=== PATIENT | male | born 1950 | race Caucasian/White ===

== ENCOUNTER 2024-05-22 10:28 | Inpatient (IN) | payer MEDICARE, SELFPAY ==
[2024-05-22] VITALS (20 sets, daily range): BP systolic 147–169; BP diastolic 73–89; PULSE 66–86; RESP 16–28; TEMP 36.8–37.3; O2SAT 93–98; BMI 22.8; BMI 23.5
--- OUTSIDE RECORDS SUMMARY | 2024-05-22 10:31 | XMS_ITS | Clinical Summary ---
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 0 07/20/2010 Active famotidine (PEPCID) 20 mg tabletIndication s:Routine medical exam Take 20 mg by mouth once daily. 0 12/07/2020 Active lisinopriL (PRINIVIL; ZESTRIL) 20 mg tabletIndication s:HTN (hypertension) Take 1 Tablet (20 mg) by mouth once daily. 90 Tablet 3 05/23/2023 Active Active Problems Problem Noted Date Diagnosed Date GERD (gastroesophageal reflux disease) 4 Rupture of right biceps tendon 03/02/2022 Overview (03/02/2022): 2019 Colon polyp, due 202501/12/2021 Overview (01/15/2021): Due 2025 3 mm tubular adenoma in the cecum 3 mm hyperplastic polyp in the sigmoid colon Paresthesia of right upper extremity 10/09/2019 HTN (hypertension) 02/07/2018 Resolved Problems Problem Noted Date Diagnosed Date Resolved Date Routine health maintenance 07/20/2010 0 09/02/2019 Overview (07/20/2010): Px: 03/2009 Cholesterol: 03/2009 216 LDL: 03/2009 137 Colonoscopy: 12/22/2004 polyp Encounters Date Type Department Care Team Description 03/21/2024 1:45 PM [employer] [facility] [address] [address] Katrina Jarrell MD Derm Problem 03/20/2024 Travel from Last 3 Months Immunizations Name Administration Dates Next Due COVID-19 vaccine (Moderna 10 0mcg/0.5mL) PF, MDV 06/29/2020,05/30/2020 Influenza A (H1N1), Inactivated 04/13/2009 Influenza A (H1N1), Inactiva lefty (Age >=3 Years) 04/13/2009 Influenza RIV4 (Age 18+ Years) PRESERV FREE 12/17 Influenza, High-dose Inactivated 02/22/2019 Influenza, High-dose Quadriv alent Inactivated 02/18/2022,02/08/2021 Influenza, IIV3 (Age >=3 years) 02/11/2013,02/02,03/17/2008 Influenza, Inactivated IIV3 (Age 65+ Years) Preserv Free 02/07/2018,03/22/2017 Pneumococcal Poly,23-Valent (Pneumovax) 01/14/20 20 Pneumococcal conj 13-Valent (Prevnar 13) 019 Td (Age >=7 Years) 02/07/2018 Td, Preservative Free (age >= 7 Years) 8 Tdap 03/17/2008 Zoster (Shingrix-RZV, recombinant) 09/13/2018, Family History Medical History Relation Name Comments Diabetes Father Heart Disease Father Hypertension Mother Other Sister uterine cancer Relation Name Status Comments Father Mother Sister Social History Tobacco Use Types Packs/Day Years Used Date Smoking Tobacco: Never Smokeless Tobacco: Never Alcohol Use Standard Drinks/Week Comments Yes 0 (1 standard drink = 0.6 oz pur e alcohol) 5 drinks per week PHQ-2 Answer Date Recorded PHQ-2 TOTAL SCORE 0 05/22/2023 Social Connections Answer Date Recorded Do you often feel lonely or isolated from those around you? 0 05/22/2023 Financial Resource Strain Answer Date R ecorded Difficulty of Paying Living Expenses 3 05/22/2023 Difficulty of Paying Living Expenses Not on file 05/22/2023 Food Insecurity Answer Date Recorded Do you worry your food will run out before you are able to buy more? 1 05/22/2023 Transportation Needs Answer Date Record ed Does lack of transportation keep you from medica l appointments? 1 05/22/2023 Does lack of transportation keep you from work, meetings or getting things that you need? 1 05/22/2023 Housing Stability Answer Date Recorded What is your housing situation today? 1 05/22/2023 Utilities Answer Date Recorded Do you have trouble paying f or utilities (for example, heat, electricity, water, phone)? 1 05/22/2023 Sex and Gender Information Value Date Recorded Sex Assigned at Not on file Legal Sex Male 7:54 AM [employer] Gender Identity Not on file Sexual Orientation Not on file Obstetrics History Last Filed Vital Signs Vital Sign Reading Time Taken Comments Blood Pressure 132/68 06/13/2023 10:43 AM [employer] Pulse 52 06/13/2023 10:43 AM [employer] Temperature 36.3 C (97.3 F) 01/12/2021 7:12 AM CDT Respiratory Rate 18 01/12/2021 9:26 AM CDT Oxygen Saturation 98% 01/12/2021 9:26 AM CDT Inhaled Oxygen Concentration - - Weight 70.8 kg (156 lb 1.6 oz) 06/13/2023 10:43 AM [employer] Height 170.2 cm (5' 7) 05/22/2023 10:47 AM [employer] Body Mass Index 24.45 05/22/2023 10:47 AM [employer] Plan of Treatment Health Maintenance Due Date Last Done Comments COVID-19 vaccine series ( season) 2023 02/18/2022, 03/15/2021, 06/29/2020, Additional history exists Influenza for age 65+ 12/17/2023 02/18/2022 , 02/08/2021, 01/14/2020, Additional history exists BMI (ht and wt on same day) for age 18+ 05/22/2024 05/22/2023, 03/02/2022, 12/07/2020, Additional history exists Medicare Wellness for age 65+ 05/22/2024, 03/02/2022, 12/07/2020, Additional history exists Depression screening for age 12+ 05/24/2024 05/24/2023, 05/23/2023, 05/22/2023, Additional history exists Colonoscopy through age 75 01/12/202601/12, 09/10/2014, 09/16/2009 RSV vaccine for adults or (1 - 1-dose 75+ series) 01/28/2027 Tetanus booster 02/08/2028 02/07/2018, 01/16, 03/17/2008 Lipids for age 45-75 05/22/2028 05/22/2023, 03/02/2022, 12/07/2020, Additional history exists Tdap Completed 03/17/2008 Zoster (shingles) series for age 50+ Completed 09/13/2018, 06/14/2018 Pneumococcal series for age 50+ Completed , 06/14/2018 Hepatitis C screening for ag e 18-79 Completed 03/02/2022 Procedures Procedure Name Priority Date/Time Associated Diagnosis Comments LIPID PANEL W REFLEX MEASURED LDL Routine 05/22/2023 11:30 AM [employer] Lipid screening ANTI HCV Routine 03/02/2022 1:21 PM [employer] Encounter for hepatitis C screening test for low risk patient COLONOSCOPY 01/12/2021 8:08 AM CDT from Last 3 Months or Most Recently Relevant to Health Maintenance Results * (ABNORMAL) LIPID PANEL W REFLEX MEASURED LDL (05/22/2023 11:30 AM [employer]) CHOLESTEROL,TOTAL 203(H) 100 - 199 mg/dL 05/23/2023 1:26 AM [employer] [facility] Comment: Cholesterol, Total Reference Ranges Desirable <200 mg/dL Borderline 200-239 mg/dL High >=240 mg/dL TRIGLYCERIDES 92 <150 mg/dL 05/23/2023 1:26 AM [employer] [facility] HDL CHOLESTEROL 60 >40 mg/dL 1:26 AM [employer] [facility] NON-HDL CHOLESTEROL 143 <145 mg/dl 05/23/2023 1:26 AM [employer] [facility] CHOL/HDL RATIO 3.38 <4.50 05/23/2023 1:26 AM [employer] [facility] LDL CHOLESTEROL 125 <=130 mg/dL 05/23/2023 1:26 AM [employer] [facility] VLDL CHOLESTEROL 18 <=30 mg/dL 05/23/2023 1:26 AM [employer] [facility] PROVIDER ORDERED STATUS RANDOM 05/23/2023 1:26 AM [employer] [facility] Blood BLOOD SPECIMEN / Unknown Venipuncture / Unknown 05/22/2023 11:30 AM [employer] 05/22/2023 11:30 AM [employer] Antonio Virgen MD CHEMISTRY Final R esult [facility] [address] [place] [address], [place] * ANTI HCV (03/02/2022 1:21 PM [employer]) HEPATITIS C ANTIBODY Non-React elvin Non-React elvin 03/04/2022 3:50 AM [employer] [facility] Comment:Antibodies to HCV no t detected; does not exclude the possibility of exposure to HCV. Blood BLOOD SPECIMEN / Unknown Venipuncture / Unknown 03/02/2022 1:21 PM [employer] 03/02/2022 1:24 PM [employer] Antonio Virgen MD SEND OUTS Final R esult [facility] [address] [place] [address], [place] * COLONOSCOPY (01/12/2021 8:08 AM CDT) 01/12/2021 8:08 AM CDT Narrative Transcriptions Shun Galvan MD - 01/12/2021 9:05 AM CDT Endoscopy Patient Name: Drew Hernandez Procedure Date: 01/12/2021 Gender: Male Date of : 1950 Admit Type: Ambulatory Procedure: Colonoscopy Proceduralist: Shun Galvan MD Referring MD: Antonio Virgen Indications/Pre-Op Diagnosis: Personal history of colonic polyps Medications: Monitored Anesthesia Care Procedure Description: The patient had risks, benefits and alternatives explained to andgave informed consent. The patient had a stable cardiopulmonary status and judged an adequate candidate for conscious sedation. The endoscope was passed through the anus and advanced to the cecum, identified by appendiceal orifice and ileocecal valve. The patient tolerated the procedure well. The quality of the bowel preparationwas good. The ileocecal valve, appendiceal orifice, and rectum were photographed. The colonoscopy was technically difficult and complexdue to a tortuous colon. Successful completion of the procedure was aidedby abdominal pressure and multiple position changes Complications: No immediate complications. Estimated Blood Loss & Specimen: Estimated blood loss was minimal. Specimen collected: Yes and sent to Laboratory Findings: The perianal and digital rectal examinations were normal. A 3 mm polyp was found in the cecum. The polyp was sessile. The polyp was removed with a hot biopsy forceps. Resection and retrieval were complete. A 3 mm polyp was found in the sigmoid colon. The polyp was sessile.The polyp was removed with a hot biopsy forceps. Resection and retrieval were complete. The exam was otherwise without abnormality. Impressions/Post-Op Diagnosis: - One 3 mm polyp in the cecum, removed with a hot biopsy forceps. Resected and retrieved. - One 3 mm polyp in the sigmoid colon, removed with a hot biopsy forceps. Resected and retrieved. - The examination was otherwise normal. Recommendation: - Follow up colonoscopy recommendations will depend on the pathologyof the polyps. - A letter will be sent to the patient with pathology results andfuture screening colonoscopy recommendations. Shun Galvan MD 01/12/2021 9:05:33 AM This report has been signed electronically. 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
--- NOTE | 2024-05-22 11:08 | ED.NAVMDI ---
HPI - Nausea/Vomiting/Diarrhea General Time Seen by Provider: 11:10 Date Seen: 05/22/24 Chief complaint: Nausea/Vomiting Stated complaint: Vomiting/cough - RSV&Pneu + Time Seen by Provider: 05/22/24 11:05 Source: patient, RN notes reviewed and old records reviewed Mode of arrival: ambulatory Limitations: no limitations History of Present Illness HPI Narrative: This 74-year-old male is coming in with ongoing nausea and vomiting in the setting of RSV and probable pneumonia diagnosed in clinic yesterday. He went to urgent care yesterday, had a positive RSV swab with underlying cough and fever as well as vomiting. He was placed on Augmentin. He states he cannot take the antibiotic, continues to just have vomiting to the point of dry heaving now, cannot get anything in. He states he really has not ate in 3 days. His chest x-ray in urgent care red subtle airspace opacities in the right middle and lower lobes may be related to aspiration or infection. Patient had been on a cruise to the [facility]. He had a 12 day history of cough. He had been in Urgent Care week prior and was given prednisone and Tessalon Perles. He was concerned about ongoing sinus symptoms and nasal congestion. He had 2 episodes of vomiting yesterday. No abdominal pain, no diarrhea, unable to take the Augmentin he was prescribed for sinusitis and pneumonia. Related Data Home Medications ?Medication ?Instructions ?Recorded ?Confirmed famotidine 20 mg tablet 20 mg PO DAILY 05/14/24 05/22/24 lisinopril 20 mg tablet 20 mg PO DAILY 05/14/24 05/22/24 Previous Rx's ?Medication ?Instructions ?Recorded benzonatate 200 mg capsule 200 mg PO TID PRN cough #30 caps 05/14/24 albuterol sulfate 90 mcg/actuation 2 puff inhalation Q6H PRN 05/21/24 aerosol inhaler shortness of breath or wheezing #6.7 grams amoxicillin-potassium clavulanate 1 tab PO BID 10 days #20 tabs 05/21/24 1,000 mg-62.5 mg tablet,ext.rel 12hr (Augmentin XR) Allergies Allergy/AdvReac Type Severity Reaction Status Date / Time Sulfa (Sulfonamide Allergy Intermediate Unknown Verified 05/22/24 13:49 Antibiotics) Review of Systems Status of ROS: Reports: 6 or more systems reviewed and unremarkable except as noted in History and below [facility] Medical History (Updated 05/22/24 @ 15:35 by Holly Ott PA-C) GERD (gastroesophageal reflux disease) ?K21.9 - Gastro-esophageal reflux disease without esophagitis (ICD-10) Hypertension ?I10 - Essential (primary) hypertension (ICD-10) Social History What is your current living situation?: I presently have a place to live Problems where you live: no known problems Problems where you live details: none In the past 12 months, utilities in danger of being shut off: no In past 12 months, lack of transportation kept you from medical appts, meetings, work, or getting things needed for daily living: no In the past 12 mos, have been you worried that your food would run out before you had money to buy more?: never true In the past 12 mos, the food you bought just didn't last and you didn't have money to buy more?: never true Highest level of school completed/degree received: Bachelor's degree Smoking Status: Never smoker Do you use any of these nicotine containing products: None How often do you have a drink containing alcohol: 4 or more times a week How many standard drinks containing alcohol do you have on a typical day: 1 or 2 How often do you have six or more drinks on one occasion: Never AUDIT-C Alcohol total score: 4 Non-prescribed substance use: denies use Caffeine: Yes (2 cups coffee) How often does anyone, including family, friends and others, physically hurt you: never How often does anyone, including family, friends and others, insult or talk down to you: never How often does anyone, including family, friends and others, threaten you with harm: never How often does anyone, including family, friends and others, scream or curse at you: never service: No Exam Const: Vital Signs, click to edit/add: Vital Signs - 24 hr 05/22/24 10:38 05/22/24 10:39 05/22/24 10:41 Temperature 98.3 F Pulse Rate 85 83 Pulse Rate [Pulse Oximeter] 86 Respiratory Rate 16 Blood Pressure 147/89 H Blood Pressure [Ri ght Upper Arm] 147/89 H Pulse Oximetry 96 98 97 Oxygen Delivery Me thod Room Air 05/22/24 10:45 05/22/24 11:00 05/22/24 11:15 Temperature Pulse Rate 80 72 73 Pulse Rate [Pulse Oximeter] Respiratory Rate Blood Pressure Blood Pressure [Ri ght Upper Arm] Pulse Oximetry 96 96 95 Oxygen Delivery Me thod 05/22/24 11:40 05/22/24 11:45 05/22/24 12:00 Temperature Pulse Rate 79 72 66 Pulse Rate [Pulse Oximeter] Respiratory Rate Blood Pressure Blood Pressure [Ri ght Upper Arm] Pulse Oximetry 95 93 94 Oxygen Delivery Me thod 05/22/24 12:15 05/22/24 12:30 05/22/24 12:45 Temperature Pulse Rate 78 85 73 Pulse Rate [Pulse Oximeter] Respiratory Rate 18 Blood Pressure Blood Pressure [Ri ght Upper Arm] Pulse Oximetry 96 96 97 Oxygen Delivery Me thod 05/22/24 13:00 Temperature Pulse Rate 77 Pulse Rate [Pulse Oximeter] Respiratory Rate Blood Pressure Blood Pressure [Ri ght Upper Arm] Pulse Oximetry 96 Oxygen Delivery Me thod 74-year-old male is alert, interactive, no apparent distress, sitting upright in the bed in exam room 2. It will to speak in complete sentences, no tachypnea, no stridor, no hoarseness. Pupils equal round reactive, sclera clear. Symmetrical facial function. Skin is tanned, note no rash. Lungs actually are clear, no wheezing or crackles heard. CV regular rate and rhythm, no murmur. Abdomen is soft, nontender, nondistended, no organomegaly, no masses. Has no lower extremity edema. Patient was ambulatory into the ED of his own accord. Documenting provider has reviewed patient's vital signs: yes Course Course ED Course: We will establish an IV, give this patient a L of IV fluids and 4 mg IV Zofran. Will get a full complement of blood work looking at CBC, chemistries, liver functions. Will include lipase and cardiac enzymes as possible atypical presentation of his nausea of for other etiologies like cardiac disease, pancreatic issues. Abdomen is soft, do not think obstructive etiology needs to be a consideration at this time but will consider doing advanced imaging pending any concerning findings on his blood work. Need to consider treating his pneumonia with IV medicines if he cannot take in orals. It is possible that he has RSV pneumonia but at this point would agree with treating with antibiotics. He is oxygenating well but still may require IV fluid support an IV antibiotics if he cannot take in orals. There is a chance for admission here to the hospital, patient does understand that. We will see how his ED course goes. Will recheck a chest x-ray just to ensure no significant worsening. Consultations Consultation #1: Up have called hospitalist service, they are not clear if they are admitting at this time or if they can admit, will contact us back shortly. 12:52 p.m.: Have spoken back with the hospitalist, reviewed case. They will accept. Will update patient that he will be coming into the hospital and review that his sodium is low. Time: 12:49 Vital Signs Vital signs: Initial Vital Signs Pulse Rate 85 05/22/24 10:38 Blood Pressure 147/89 H 05/22/24 10:38 Blood Pressure Mean 108 H 05/22/24 10:38 Pulse Oximetry 96 05/22/24 10:38 Vital Signs Pulse Rate 85 05/22/24 10:38 Blood Pressure 147/89 H 05/22/24 10:38 Pulse Oximetry 96 05/22/24 10:38 Temperature 98.7 F 05/22/24 13:53 Pulse Rate 85 05/22/24 13:53 Respiratory Rate 18 05/22/24 14:41 Blood Pressure 163/78 H 05/22/24 13:53 Pulse Oximetry 93 05/22/24 14:41 Oxygen Delivery Method Room Air 05/22/24 14:41 Medications Administered Medications: Generic Name Dose Route Start Last Admin Trade Name Freq PRN Reason Stop Dose Admin Sodium Chloride 1,000 mls @ 100 mls/hr 05/22/24 14:54 05/22/24 15:25 0.9 % Sodium Chloride 1000 Ml IV 05/23/24 00:53 100 mls/hr .Q10H DAYANA Administration Discontinued Medications Generic Name Dose Route Start Last Admin Trade Name Freq PRN Reason Stop Dose Admin Sodium Chloride 1,000 mls @ 500 mls/hr 05/22/24 11:17 05/22/24 12:33 0.9 % Sodium Chloride 1000 Ml IV 05/22/24 13:16 Infused .Q2H DAYANA Infusion Ceftriaxone Sodium 1 gm/ 100 mls @ 200 mls/hr 05/22/24 11:53 05/22/24 12:33 Sodium Chloride IVPB 05/22/24 11:54 Infused ONCE ONE Infusion Azithromycin 500 mg/ Sodium 255 mls @ 255 mls/hr 05/22/24 11:53 05/22/24 13:29 Chloride IVPB 05/22/24 11:54 Infused ONCE ONE Infusion Ondansetron HCl 4 mg 05/22/24 11:16 05/22/24 11:48 Ondansetron 2 Mg/Ml Inj IVP 05/22/24 11:17 4 mg ONCE ONE Administration MDM - Nausea/Vomiting/Diarrhea Lab Data Attestation: I reviewed the patient's lab results. Labs: Lab Results 05/22/24 Range/Units 11:30 WBC 15.44 H (4.50-11.00) K/uL RBC 4.01 L (4.30-5.90) m/uL Hgb 12.4 L (13.5-17.5) gm/dL Hct 34.9 L (37.0-53.0) % MCV 87 (80-100) fL MCH 31 (26-34) pg MCHC 36 (32-36) gm/dL RDW Coeff of Trisha 11.2 L (11.5-15.5) % Plt Count 296 (140-440) K/uL Neut % (Auto) 87.0 H (42.0-72.0) % Lymph % (Auto) 5.5 L (20-44) % [place] % (Auto) 6.5 (0.0-11.0) % Eos % (Auto) 0.2 (0.0-7.0) % Baso % (Auto) 0.1 (0.0-3.0) % Neut # (Auto) 13.40 H (1.7-7.0) K/uL Lymph # (Auto) 0.80 L (0.90-2.90) K/uL [place] # (Auto) 1.00 H (0.00-0.90) K/UL Eos # (Auto) 0.00 (0.00-0.50) K/uL Baso # (Auto) 0.00 (0.00-0.30) K/uL Abs Immat Gran (auto) 0.10 (0.00-0.30) K/uL Imm/Tot Granulo (auto) 0.7 % VBG pH 7.420 (7.32-7.43) VBG pCO2 37 L (40-50) mmHG VBG pO2 < 30.1 (25-47) mmHG VBG HCO3 25 (21-28) mmol/L Sodium 118 L* (135-149) mmol/L Potassium 4.9 (3.6-5.1) mmol/L Chloride 85 L (96-114) mmol/L Carbon Dioxide 22 (20-32) mmol/L Anion Gap 11 (7-15) mEq/L BUN 17 (7-30) mg/dL Creatinine 0.8 (0.5-1.5) mg/dL Estimated Creat Clear 64.26 Estimated GFR 94 ml/min Glucose 120 H (60-115) mg/dL Lactate 0.9 (0.5-1.9) mmol/L Calcium 8.7 (8.4-10.6) mg/dL Magnesium 2.0 (1.5-2.6) mg/dL Total Bilirubin 1.1 (0.1-1.5) mg/dL AST 64 H (12-35) U/L ALT 45 (4-50) U/L Alkaline Phosphatase 110 (40-150) U/L Troponin I < 0.01 L (0.01-0.04) ng/mL C-Reactive Protein 21.4 H (0.5-1.0) mg/dL Total Protein 7.0 (6.0-8.3) g/dL Albumin 4.0 (3.3-5.0) g/dL Lipase 72 (23-300) U/L Imaging Data Chest x-ray: Attestation: I have reviewed the pertinent imaging results. Radiologist's impression: Patient: LENNY PULIDO Facility:?[facility] Patient ID:?[id number] Site Patient ID:?[id number]. Site :?[id number] Study:?XRay-Chest Portable one view-05/22/2024 11:36:17 AM Ordering Physician:Víctor Bruce Final Report: INDICATION: : Cough chest radiograph on May 21, 2024 COMPARISON: Chest radiograph from May 21, 2024 TECHNIQUE: One view(s) of the chest FINDINGS/IMPRESSION: The cardiomediastinal silhouette and pulmonary vasculature are unremarkable. Faint airspace opacities in the right upper and mid lung zones and likely medial right lower lobe, concerning for multifocal pneumonia. There is no pleural effusion or pneumothorax. No displaced fractures. Dictated by Ambrocio Butt MD @ 05/22/2024 11:43:14 AM (Electronic Signature) ECG Data Attestation: I personally reviewed and interpreted this ECG as follows: (Normal sinus rhythm, 75 beats per minute. No evidence of ischemia or infarct.) ECG interpretation date: 05/22/24 ECG interpretation time: 11:43 Prior ECG tracings: not available for review Discharge Plan Discharge Clinical Impression: Acute nausea with nonbilious vomiting, Acute hyponatremia, Pneumonia, RSV (respiratory syncytial virus infection) Patient Disposition: Admitted As Observation
--- NOTE | 2024-05-22 11:16 | CRLHL7_ITS ---
For Patients: As a result of the Cures Act, medical imaging exams and procedure reports are released immediately into your electronic medical record. You may view this report before your referring provider. If you have questions, please contact your health care provider. INDICATION: : Cough chest radiograph on May 21, 2024 COMPARISON: Chest radiograph from May 21, 2024 TECHNIQUE: One view(s) of the chest FINDINGS/IMPRESSION: The cardiomediastinal silhouette and pulmonary vasculature are unremarkable. Faint airspace opacities in the right upper and mid lung zones and likely medial right lower lobe, concerning for multifocal pneumonia. There is no pleural effusion or pneumothorax. No displaced fractures. Dictated by Ambrocio Butt MD @ 05/22/2024 11:43:14 AM (Electronically Signed)
[2024-05-22 11:41] LABS: Lactate* 0.9 mmol/L (0.5-1.9)
[2024-05-22] MEDS: ONDANSETRON 2 MG/ML inj 4 MG IVP (11:48)
[2024-05-22] MEDS: 0.9 % SODIUM CHLORIDE 1000 ml 1,000 ML 500 ML IV (11:48)
[2024-05-22 11:53] LABS: Basophils Percent Auto 0.1 % (0.0-3.0); Eosinophils Percent Auto 0.2 % (0.0-7.0); HCO3 VBG 25 mmol/L (21-28); Hematocrit 34.9 % (37.0-53.0); Hemoglobin* 12.4 gm/dL (13.5-17.5); Immature Granulocytes Pct Auto 0.7 %; Lymphocytes Percent Auto 5.5 % (20-44); Mean Corpuscular HGB Conc 36 gm/dL (32-36); Mean Corpuscular Hemoglobin 31 pg (26-34); Mean Corpuscular Volume 87 fL (80-100); Monocytes Percent Auto 6.5 % (0.0-11.0); PCO2 VBG 37 mmHG (40-50); PO2 VBG < 30.1 mmHG (25-47); Platelet Count* 296 K/uL (140-440); RDW Coefficient of Variation % 11.2 % (11.5-15.5); Red Blood Count 4.01 m/uL (4.30-5.90); White Blood Count* 15.44 K/uL (4.50-11.00)
[2024-05-22 11:54] LABS: Slide Review Reflex No
[2024-05-22] MEDS: cefTRIAXone 1 GM in 0.9 % SODIUM CHLORIDE Mini-bag 100 ML IVPB (12:04)
[2024-05-22 12:07] LABS: Chloride* 85 mmol/L (96-114)
[2024-05-22 12:08] LABS: Potassium* 4.9 mmol/L (3.6-5.1)
[2024-05-22 12:09] LABS: Creatinine* 0.8 mg/dL (0.5-1.5); Est. Creatinine Clearance* 64.26; Estimated Glomerular Filt Rate 94 ml/min
[2024-05-22 12:10] LABS: Alkaline Phosphatase* 110 U/L (40-150); Aspartate Amino Transferase* 64 U/L (12-35); Bilirubin Total* 1.1 mg/dL (0.1-1.5); Blood Urea Nitrogen* 17 mg/dL (7-30); Carbon Dioxide* 22 mmol/L (20-32); Lipase* 72 U/L (23-300)
[2024-05-22 12:11] LABS: Alanine Aminotransferase* 45 U/L (4-50); Calcium* 8.7 mg/dL (8.4-10.6); Glucose* 120 mg/dL (60-115)
[2024-05-22 12:22] LABS: Anion Gap 11 mEq/L (7-15); Sodium* 118 mmol/L (135-149)
[2024-05-22 12:27] LABS: C Reactive Protein* 21.4 mg/dL (0.5-1.0)
[2024-05-22] MEDS: AZITHROMYCIN 500 MG in 0.9 % SODIUM CHLORIDE 250 ml 250 ML 255 MG IVPB (12:34)
[2024-05-22 12:42] LABS: Troponin I* < 0.01 ng/mL (0.01-0.04)
[2024-05-22 14:44] LABS: Albumin* 3.7 g/dL (3.3-5.0); Chloride* 89 mmol/L (96-114)
[2024-05-22 14:45] LABS: Potassium* 4.6 mmol/L (3.6-5.1)
[2024-05-22 14:47] LABS: Aspartate Amino Transferase* 57 U/L (12-35); Bilirubin Total* 0.9 mg/dL (0.1-1.5); Carbon Dioxide* 20 mmol/L (20-32); Creatinine* 0.7 mg/dL (0.5-1.5); Estimated Glomerular Filt Rate 98 ml/min; Total Protein* 6.5 g/dL (6.0-8.3)
[2024-05-22 14:48] LABS: Alanine Aminotransferase* 41 U/L (4-50); Alkaline Phosphatase* 102 U/L (40-150); Blood Urea Nitrogen* 15 mg/dL (7-30); Calcium* 8.1 mg/dL (8.4-10.6); Glucose* 107 mg/dL (60-115)
--- NOTE | 2024-05-22 14:48 | PM.IMHP1 ---
Hospitalist- H&P: HPI History of Present Illness Date Seen: 05/22/24 Chief complaint: Vomiting/cough - RSV&Pneu + Narrative: Drew Hernandez is a 74 year old male past medical history significant for hypertension, GERD is admitted the medical floor from the ED for further management acute hyponatremia, multifocal pneumonia, and RSV. Patient is seen with at bedside. Returned from a 2 week cruise to the [place] a couple of weeks ago. Reports coming down with chest congestion and what he thought was a head cold approximately 05/09/2024. Had been seen a couple of times in the outpatient setting and has completed a course of antibiotics and steroids without improvement. For the past 3 days now has had a worsening, dry cough. Began vomiting last night. Increased weakness. In the ED, was found to have a sodium of 118. Has not had much of an appetite for the past 3 days. Last bowel movement was yesterday, small otherwise normal. Denies diarrhea. Denies abdominal pain other than when coughing. Denies headache or dizziness. Had a fever of 100.3? yesterday. RSV positive 05/21/2024, COVID influenza negative. CXR concerning for multifocal pneumonia. No hypoxia. LFTs mostly unremarkable, lipase negative. Nonsmoker. Drinks 1 scotch and aida [place] drink nightly. PCP is, Dr. Virgen, [facility]. Review of Systems Narrative: REVIEW OF SYSTEMS: Complete review of systems performed and negative unless otherwise stated in HPI or below. [facility] Medical History GERD (gastroesophageal reflux disease) ?K21.9 - Gastro-esophageal reflux disease without esophagitis (ICD-10) Hypertension ?I10 - Essential (primary) hypertension (ICD-10) Social History What is your current living situation?: I presently have a place to live Problems where you live: no known problems Problems where you live details: none In the past 12 months, utilities in danger of being shut off: no In past 12 months, lack of transportation kept you from medical appts, meetings, work, or getting things needed for daily living: no In the past 12 mos, have been you worried that your food would run out before you had money to buy more?: never true In the past 12 mos, the food you bought just didn't last and you didn't have money to buy more?: never true Highest level of school completed/degree received: Bachelor's degree Smoking Status: Never smoker Do you use any of these nicotine containing products: None How often do you have a drink containing alcohol: 4 or more times a week How many standard drinks containing alcohol do you have on a typical day: 1 or 2 How often do you have six or more drinks on one occasion: Never AUDIT-C Alcohol total score: 4 Non-prescribed substance use: denies use Caffeine: Yes (2 cups coffee) How often does anyone, including family, friends and others, physically hurt you: never How often does anyone, including family, friends and others, insult or talk down to you: never How often does anyone, including family, friends and others, threaten you with harm: never How often does anyone, including family, friends and others, scream or curse at you: never service: No Meds Home Medications and Allergies Home Medications ?Medication ?Instructions ?Recorded ?Confirmed ?Type famotidine 20 mg tablet 20 mg PO DAILY 05/14/24 05/22/24 History lisinopril 20 mg tablet 20 mg PO DAILY 05/14/24 05/22/24 History Allergies Allergy/AdvReac Type Severity Reaction Status Date / Time Sulfa (Sulfonamide Allergy Intermediate Unknown Verified 05/22/24 13:49 Antibiotics) Exam Narrative: Exam Narrative: PHYSICAL EXAM General: Pleasant, conversant, NAD HEENT: Normocephalic, atraumatic, sclera white, EOMI, oral mucosa moist Cardiovascular: RRR, S1S2. No pitting edema Pulmonary: Moving air, coarse expirations, No dyspnea or tachypnea on room air Abdominal: Soft, nondistended, NTTP, no guarding Neurological: Alert, answering questions appropriately, cranial nerves intact, no focal findings Extremities: No gross joint deformity or swelling. AROMI. Neurovascularly intact Skin: Warm, dry. Const: Vital Signs, click to edit/add: Vital Signs - 24 hr 05/22/24 10:38 05/22/24 10:39 05/22/24 10:41 Temperature 98.3 F Pulse Rate 85 83 Pulse Rate [Pulse Oximeter] 86 Respiratory Rate 16 Blood Pressure 147/89 H Blood Pressure [Ri ght Arm] Blood Pressure [Ri ght Upper Arm] 147/89 H Pulse Oximetry 96 98 [facility] 05/22/24 10:45 05/22/24 11:00 05/22/24 11:15 Temperature Pulse Rate 80 72 73 Pulse Rate [Pulse Oximeter] Respiratory Rate Blood Pressure Blood Pressure [Ri ght Arm] Blood Pressure [Ri ght Upper Arm] Pulse Oximetry 96 96 95 [facility] 05/22/24 11:40 05/22/24 11:45 05/22/24 12:00 Temperature Pulse Rate 79 72 66 Pulse Rate [Pulse Oximeter] Respiratory Rate Blood Pressure Blood Pressure [Ri ght Arm] Blood Pressure [Ri ght Upper Arm] Pulse Oximetry 95 93 94 [facility] 05/22/24 12:15 05/22/24 12:30 05/22/24 12:45 Temperature Pulse Rate 78 85 73 Pulse Rate [Pulse Oximeter] Respiratory Rate 18 Blood Pressure Blood Pressure [Ri ght Arm] Blood Pressure [Ri ght Upper Arm] Pulse Oximetry 96 96 97 Oxygen Delivery [facility] 05/22/24 13:00 05/22/24 13:53 05/22/24 14:30 Temperature 98.7 F Pulse Rate 77 Pulse Rate [Pulse Oximeter] 85 Respiratory Rate 16 28 H Blood Pressure Blood Pressure [Ri ght Arm] 163/78 H Blood Pressure [Ri ght Upper Arm] Pulse Oximetry 96 97 97 Oxygen Delivery [facility] Room Air Room Air 05/22/24 14:41 Temperature Pulse Rate Pulse Rate [Pulse Oximeter] Respiratory Rate 18 Blood Pressure Blood Pressure [Ri ght Arm] Blood Pressure [Ri ght Upper Arm] Pulse Oximetry 93 Oxygen Delivery [facility] Room Air Hospitalist - H&P: Result Labs Labs: Short CBC 05/22/24 Range/Units 11:30 WBC 15.44 H (4.50-11.00) K/uL Hgb 12.4 L (13.5-17.5) gm/dL Hct 34.9 L (37.0-53.0) % Plt Count 296 (140-440) K/uL BMP 05/22/24 11:30 Sodium 118 L* Potassium 4.9 Chloride 85 L Carbon Dioxide 22 BUN 17 Creatinine 0.8 Glucose 120 H Calcium 8.7 Cardiac Enzymes 05/22/24 Range/Units 11:30 Troponin I < 0.01 L (0.01-0.04) ng/mL Liver Function 05/22/24 Range/Units 11:30 Total Bilirubin 1.1 (0.1-1.5) mg/dL AST 64 H (12-35) U/L ALT 45 (4-50) U/L Alkaline Phosphatase 110 (40-150) U/L Albumin 4.0 (3.3-5.0) g/dL ECG Attestation: I personally reviewed and interpreted this ECG as follows: ECG interpretation date: 05/22/24 Interpretation: NSR, ventricular rate 75, QTC 415 Imaging Chest x-ray: Attestation: I have reviewed the pertinent imaging results. Radiologist's impression: The cardiomediastinal silhouette and pulmonary vasculature are unremarkable. Faint airspace opacities in the right upper and mid lung zones and likely medial right lower lobe, concerning for multifocal pneumonia. There is no pleural effusion or pneumothorax. No displaced fractures. Assessment and Plan Assessment and plan (1) RSV (respiratory syncytial virus infection): Problem comment: -positive test 05/21/24, sxs congestion, fever 100.3 at home, dry cough -symptomatic cares Status: Acute (2) Pneumonia: Problem comment: -CXR shows faint airspace opacities in the right upper and mid lung zones and likely medial right lower lobe, concerning for multifocal pneumonia -leukocytosis, lactate 0.9, procalcitonin 0.39, CRP 21.4 -continue Ceftriaxone and azithromycin as initiated in ED -mucinex bid, tessalon perles prn, incentive spirometry, aerobika, albuterol nebs prn -consider CT imaging if new or worsening symptoms or no resolve Status: Acute (3) Acute hyponatremia: Problem comment: -likely in setting of viral illness, vomiting, decreased oral intake -sodium 118 in ED, improved to 120 following NS bolus -additional NS at 100ml x 1L -fluid restriction 1500ml, protein supplements, consider addition of sodium tabs tomorrow -hold lisinopril for now -serial labs Status: Acute (4) Acute nausea with nonbilious vomiting: Problem comment: -nausea with vomiting. No diarrhea, last BM yesterday. Consider norovirus test if develops abdominal pain, diarrhea -antiemetic prn Status: Acute (5) Hypertension: Problem comment: -holding lisinopril in setting of hyponatremia, monitor pressures Status: Acute (6) GERD (gastroesophageal reflux disease): Problem comment: -continue famotidine Status: Acute Total Time Spent Total Time Spent: Total time spent caring for the patient today was 75 minutes. This includes time spent for the visit reviewing the chart, time spent during the visit, time spent after the visit and documentation and planning in coordination of care.
[2024-05-22 14:53] LABS: Anion Gap 11 mEq/L (7-15); Sodium* 120 mmol/L (135-149)
[2024-05-22] MEDS: 0.9 % SODIUM CHLORIDE 1000 ml 1,000 ML 100 ML IV (15:25)
[2024-05-22 15:32] LABS: Procalcitonin* 0.39 ng/mL (<0.50)
[2024-05-22] MEDS: BENZONATATE 100 MG CAPSULE 200 MG PO (16:07)
[2024-05-22 18:49] LABS: Sodium* 119 mmol/L (135-149)
[2024-05-22] MEDS: 3 % SODIUM CHLORIDE 500 ml 50 ML 33.33 ML IV ×2 (19:36→23:41)
[2024-05-22] MEDS: SODIUM CHLORIDE 0.9 % (FLUSH) 10 ML SYRINGE 5 ML IVF (21:14)
[2024-05-22] MEDS: guaiFENesin 600 MG TAB.ER.12H 1200 MG PO (21:14)
[2024-05-22] MEDS: ENOXAPARIN 40 MG/0.4 ML INJ SUBCUT (21:14)
[2024-05-22 22:39] LABS: Sodium* 120 mmol/L (135-149)
--- NOTE | 2024-05-22 23:17 | PC.NURSE ---
End of Shift: Patient pleasant and cooperative. Temp max 99.0. Denies pain. O2 sats greater than 90% on room air. Tele showing NSR. Up to bathroom with SBA. Tolerating regular diet with no nausea.
[2024-05-23] VITALS (7 sets, daily range): BP systolic 136–159; BP diastolic 68–73; PULSE 65–74; RESP 18; TEMP 36.7–37.3; O2SAT 95–98
[2024-05-23] MEDS: CALCIUM CARBONATE 500 MG CHEW PO (01:20)
[2024-05-23 02:23] LABS: Sodium* 121 mmol/L (135-149)
[2024-05-23] MEDS: 3 % SODIUM CHLORIDE 500 ml 50 ML 33.33 ML IV ×3 (02:42→14:29)
[2024-05-23 04:42] LABS: Hematocrit 32.6 % (37.0-53.0); Hemoglobin* 11.5 gm/dL (13.5-17.5); Mean Corpuscular HGB Conc 35 gm/dL (32-36); Mean Corpuscular Hemoglobin 31 pg (26-34); Mean Corpuscular Volume 89 fL (80-100); Platelet Count* 281 K/uL (140-440); Red Blood Count 3.67 m/uL (4.30-5.90); White Blood Count* 13.98 K/uL (4.50-11.00)
[2024-05-23 04:45] LABS: Slide Review Reflex No
[2024-05-23 04:53] LABS: Chloride* 93 mmol/L (96-114)
[2024-05-23 04:54] LABS: Potassium* 4.5 mmol/L (3.6-5.1)
[2024-05-23 04:56] LABS: Creatinine* 0.8 mg/dL (0.5-1.5); Estimated Glomerular Filt Rate 94 ml/min
[2024-05-23 04:57] LABS: Anion Gap 8 mEq/L (7-15); Blood Urea Nitrogen* 14 mg/dL (7-30); Carbon Dioxide* 20 mmol/L (20-32); Glucose* 101 mg/dL (60-115)
[2024-05-23 04:58] LABS: Calcium* 8.3 mg/dL (8.4-10.6)
[2024-05-23 05:01] LABS: Sodium* 121 mmol/L (135-149)
[2024-05-23 05:17] LABS: C Reactive Protein* 19.8 mg/dL (0.5-1.0)
[2024-05-23 05:24] LABS: Magnesium* 2.1 mg/dL (1.5-2.6)
--- NOTE | 2024-05-23 07:01 | PC.NURSE ---
19-: Pleasant and cooperative. SBA. Calls appropriately. Compliant with 1500 Fluid Restriction. Na + 120 -> 121 -> 121, each lab draw done after 50mL 3% NS given. MD ordered Urine Na, need urine sample. LS diminished in Right lobe. Occasional cough.
[2024-05-23] MEDS: FAMOTIDINE 20 MG TABLET PO (09:10)
[2024-05-23] MEDS: guaiFENesin 600 MG TAB.ER.12H 1200 MG PO ×2 (09:10→20:15)
[2024-05-23] MEDS: cefTRIAXone 1 GM in 0.9 % SODIUM CHLORIDE Mini-bag 100 ML IVPB (09:11)
[2024-05-23] MEDS: SODIUM CHLORIDE 0.9 % (FLUSH) 10 ML SYRINGE 5 ML IVF ×2 (09:11→20:16)
[2024-05-23] MEDS: AZITHROMYCIN 500 MG in 0.9 % SODIUM CHLORIDE 250 ml 250 ML 255 MG IVPB (09:55)
--- NOTE | 2024-05-23 12:37 | REH.OT ---
OT: Order received, chart reviewed, patient had just been up independently as he was cleared by PT and returning to chair, completed toileting independently. Coughing frequently, O2 sats on RA 94%, HR . Initiated ed with pacing strategies with acute illness, however Patient c/o burning in eyes, not getting back up because of eyes, informed RN and OT provided compress to eyes, pt reclined in chair declining need for OT. He does not present with need for skilled inpatient OT currently. OT will follow up if additional concerns arise.
[2024-05-23 12:43] LABS: Sodium* 122 mmol/L (135-149)
[2024-05-23 12:44] LABS: Sodium Urine Random* 104
--- NOTE | 2024-05-23 15:26 | PC.NURSE ---
End of shift [id number]: AxOx4, cooperative, and pleasant. Indep in room after being seen with PT. Compliant with 1500 Fluid Restriction. Na + 122. 3% NS given running at 33.33 mL for a total of 50mLper MD order. Na recheck @ 6740. Urine sample collected. Active, frequent cough. No pain reported. Family at bedside. Call light within reach.
--- NOTE | 2024-05-23 15:39 | PM.IMPN1 ---
Progress Note: A&P Assessment and plan (1) RSV (respiratory syncytial virus infection): Problem details: -positive test 05/21/24, sxs congestion, fever 100.3 at home, dry cough -symptomatic cares Status: Acute (2) Pneumonia: Problem details: -CXR shows faint airspace opacities in the right upper and mid lung zones and likely medial right lower lobe, concerning for multifocal pneumonia -leukocytosis, lactate 0.9, procalcitonin 0.39, CRP 21.4 -continue Ceftriaxone and azithromycin as initiated in ED -mucinex bid, tessalon perles prn, incentive spirometry, aerobika, albuterol nebs prn -consider CT imaging if new or worsening symptoms or no resolve Status: Acute (3) Acute hyponatremia: Problem details: -likely in setting of viral illness, vomiting, decreased oral intake -sodium 118 in ED, improved to 120 following NS bolus -additional NS at 100ml x 1L -fluid restriction 1500ml, protein supplements, consider addition of sodium tabs tomorrow -hold lisinopril for now -serial labs Status: Acute (4) Acute nausea with nonbilious vomiting: Problem details: -nausea with vomiting. No diarrhea, last BM yesterday. Consider norovirus test if develops abdominal pain, diarrhea -antiemetic prn Status: Acute (5) Hypertension: Problem details: -holding lisinopril in setting of hyponatremia, monitor pressures Status: Acute (6) GERD (gastroesophageal reflux disease): Problem details: -continue famotidine Status: Acute Subjective Date Seen: 05/23/24 Interval history: Pt seen and examined at bedside, he feels better today. Afebrile. Tolerating food. Exam Narrative: Exam Narrative: Physical exam GENERAL: Comfortable, no acute distress. HEAD AND NECK: Atraumatic, normocephalic CARDIOVASCULAR: RRR. Normal S1, S2. No murmurs. RESPIRATORY: Clear to auscultation B/L. Good air entry B/L. No wheezes or rhonchi. GASTROINTESTINAL: Not distended, not tender to palpation. NEUROLOGY: Alert, awake, oriented X 3. Normal speech. PSYCH: Normal mood, normal affect. Const: Vital Signs, click to edit/add: Vital Signs - 24 hr 05/22/24 19:00 05/22/24 21:43 05/22/24 23:00 Temperature 98.6 F 99.2 F Pulse Rate 76 Pulse Rate [Pulse Oximeter] 77 72 Respiratory Rate 18 20 Blood Pressure [Le ft Arm] 169/73 H Blood Pressure [Ri ght Arm] 156/77 H Pulse Oximetry 95 96 Oxygen Delivery Me thod Room Air Room Air 05/22/24 23:00 05/23/24 02:49 05/23/24 07:00 Temperature 99.1 F 98.5 F Pulse Rate Pulse Rate [Pulse Oximeter] 71 70 Respiratory Rate 18 18 18 Blood Pressure [Le ft Arm] Blood Pressure [Ri ght Arm] 145/72 H 148/73 H Pulse Oximetry 95 95 Oxygen Delivery Me thod Room Air Room Air 05/23/24 07:00 05/23/24 11:00 Temperature 98.1 F Pulse Rate 65 Pulse Rate [Pulse Oximeter] 68 Respiratory Rate 18 Blood Pressure [Le ft Arm] Blood Pressure [Ri ght Arm] 158/69 H Pulse Oximetry 96 Oxygen Delivery Me thod Room Air Labs Labs: Laboratory Results - last 24 hr 05/22/24 05/22/24 05/22/24 14:54 15:39 18:28 WBC RBC Hgb Hct MCV MCH MCHC Plt Count Sodium 119 L* Potassium Chloride Carbon Dioxide Anion Gap BUN Creatinine Estimated Creat Clear Estimated GFR Glucose Calcium Magnesium C-Reactive Protein Ur Random Sodium Lab Acknowledgement Test Added Cancelled 05/22/24 05/23/24 05/23/24 22:20 02:02 04:25 WBC 13.98 H RBC 3.67 L Hgb 11.5 L Hct 32.6 L MCV 89 MCH 31 MCHC 35 Plt Count 281 Sodium 120 L* 121 L* 121 L* Potassium 4.5 Chloride 93 L Carbon Dioxide 20 Anion Gap 8 BUN 14 Creatinine 0.8 Estimated Creat Clear 64.60 Estimated GFR 94 Glucose 101 Calcium 8.3 L Magnesium 2.1 C-Reactive Protein 19.8 H Ur Random Sodium Lab Acknowledgement 05/23/24 05/23/24 05:17 12:09 WBC RBC Hgb Hct MCV MCH MCHC Plt Count Sodium 122 L* Potassium Chloride Carbon Dioxide Anion Gap BUN Creatinine Estimated Creat Clear Estimated GFR Glucose Calcium Magnesium C-Reactive Protein Ur Random Sodium 104 Lab Acknowledgement
[2024-05-23] MEDS: BENZOCAINE/MENTHOL 1 EACH LOZENGE MUCOUS MEM ×2 (16:06→20:27)
[2024-05-23] MEDS: BENZONATATE 100 MG CAPSULE 200 MG PO (20:15)
[2024-05-23] MEDS: ENOXAPARIN 40 MG/0.4 ML INJ SUBCUT (20:15)
[2024-05-23] MEDS: ACETAMINOPHEN 325 MG TABLET PO (20:26)
[2024-05-23 20:28] LABS: Sodium* 124 mmol/L (135-149)
[2024-05-23] MEDS: SODIUM CHLORIDE 1 GM TABLET PO (21:40)
[2024-05-24] VITALS (9 sets, daily range): BP systolic 154–180; BP diastolic 75–92; PULSE 60–81; RESP 18–22; TEMP 36.8–37.2; O2SAT 96–98
[2024-05-24 06:29] LABS: Hematocrit 31.2 % (37.0-53.0); Mean Corpuscular HGB Conc 35 gm/dL (32-36); Mean Corpuscular Hemoglobin 31 pg (26-34); Mean Corpuscular Volume 89 fL (80-100); Platelet Count* 277 K/uL (140-440); White Blood Count* 12.46 K/uL (4.50-11.00)
[2024-05-24 06:33] LABS: Slide Review Reflex No
[2024-05-24 06:35] LABS: Chloride* 94 mmol/L (96-114); Potassium* 4.3 mmol/L (3.6-5.1); Sodium* 125 mmol/L (135-149)
[2024-05-24 06:39] LABS: Anion Gap 5 mEq/L (7-15); Blood Urea Nitrogen* 14 mg/dL (7-30); Calcium* 8.3 mg/dL (8.4-10.6); Carbon Dioxide* 26 mmol/L (20-32); Creatinine* 0.8 mg/dL (0.5-1.5); Estimated Glomerular Filt Rate 94 ml/min; Glucose* 104 mg/dL (60-115)
--- NOTE | 2024-05-24 06:51 | PC.NURSE ---
23-07: pleasant and cooperative. Complient with Fluid Restriction. Hoarse cough, crackles auscultated in bases, encouraging deep breathing exercises. VSS.
[2024-05-24 06:56] LABS: C Reactive Protein* 16.1 mg/dL (0.5-1.0)
[2024-05-24] MEDS: SODIUM CHLORIDE 1 GM TABLET PO ×3 (07:45→18:18)
[2024-05-24] MEDS: 3 % SODIUM CHLORIDE 500 ml 50 ML 33.33 ML IV (07:52)
[2024-05-24] MEDS: FAMOTIDINE 20 MG TABLET PO (09:17)
[2024-05-24] MEDS: BENZONATATE 100 MG CAPSULE 200 MG PO ×3 (09:17→21:14)
[2024-05-24] MEDS: cefTRIAXone 1 GM in 0.9 % SODIUM CHLORIDE Mini-bag 100 ML IVPB (09:17)
[2024-05-24] MEDS: SODIUM CHLORIDE 0.9 % (FLUSH) 10 ML SYRINGE 5 ML IVF ×2 (09:17→21:14)
[2024-05-24] MEDS: guaiFENesin 600 MG TAB.ER.12H 1200 MG PO ×2 (09:17→21:14)
[2024-05-24] MEDS: ACETAMINOPHEN 325 MG TABLET PO (09:24)
[2024-05-24 11:30] LABS: Sodium* 124 mmol/L (135-149)
[2024-05-24] MEDS: 3 % SODIUM CHLORIDE 500 ml 100 ML 33.33 ML IV (12:00)
--- NOTE | 2024-05-24 14:34 | P.IMPN_ITS ---
Progress Note: A&P Assessment and plan (1) RSV (respiratory syncytial virus infection): Problem details: -positive test 05/21/24, sxs congestion, fever 100.3 at home, dry cough -symptomatic cares Status: Acute (2) Pneumonia: Problem details: -CXR shows faint airspace opacities in the right upper and mid lung zones and likely medial right lower lobe, concerning for multifocal pneumonia -leukocytosis, lactate 0.9, procalcitonin 0.39, CRP 21.4 -continue Ceftriaxone and azithromycin as initiated in ED -mucinex bid, tessalon perles prn, incentive spirometry, aerobika, albuterol nebs prn -consider CT imaging if new or worsening symptoms or no resolve Status: Acute (3) Acute hyponatremia: Problem details: -likely in setting of viral illness, vomiting, pna -sodium 118 in ED -fluid restriction 1500ml, protein supplements, consider addition of sodium tabs tomorrow -hold lisinopril for now -serial labs Status: Acute (4) Acute nausea with nonbilious vomiting: Problem details: -nausea with vomiting. No diarrhea, last BM yesterday. Consider norovirus test if develops abdominal pain, diarrhea -antiemetic prn Status: Acute (5) Hypertension: Problem details: -holding lisinopril in setting of hyponatremia, monitor pressures Status: Acute (6) GERD (gastroesophageal reflux disease): Problem details: -continue famotidine Status: Acute Time Spent With Patient Total time spent: Today I spent 50 minutes seeing the patient, reviewing Expanse and EPIC notes/diagnostics, discussing the care plan with our care time that includes social work, PT/OT, pharmacy, RT, halfway and documenting my impressions and plan in the medical record. Subjective Date Seen: 05/24/24 Interval history: Pt seen and examined at bedside, he feels a bit better today. Slowly improving hyponatremia. Exam Narrative: Exam Narrative: Physical exam GENERAL: Comfortable, no acute distress. HEAD AND NECK: Atraumatic, normocephalic CARDIOVASCULAR: RRR. Normal S1, S2. No murmurs. RESPIRATORY: Clear to auscultation B/L. Good air entry B/L. No wheezes or rhonchi. NEUROLOGY: Alert, awake, oriented X 3. Normal speech. PSYCH: Normal mood, normal affect. Const: Vital Signs, click to edit/add: Vital Signs - 24 hr 05/23/24 15:00 05/23/24 15:00 05/23/24 15:00 Temperature 98.3 F Pulse Rate 74 Pulse Rate [Pulse Oximeter] 68 68 Respiratory Rate 18 18 Blood Pressure [Ri ght Arm] 151/68 H Pulse Oximetry 96 Oxygen Delivery Me thod Room Air 05/23/24 19:00 05/23/24 23:00 05/23/24 23:00 Temperature 99.1 F Pulse Rate 71 Pulse Rate [Pulse Oximeter] 68 Respiratory Rate 18 18 Blood Pressure [Ri ght Arm] 159/73 H Pulse Oximetry 98 Oxygen Delivery Me thod Room Air 05/23/24 23:30 05/24/24 03:00 05/24/24 07:24 Temperature 98.2 F 98.4 F Pulse Rate 60 Pulse Rate [Pulse Oximeter] 70 66 Respiratory Rate 18 20 Blood Pressure [Ri ght Arm] 136/72 165/82 H Pulse Oximetry 96 96 Oxygen Delivery Me thod Room Air Room Air 05/24/24 07:41 05/24/24 07:41 05/24/24 11:22 Temperature 98.5 F 98.3 F Pulse Rate Pulse Rate [Pulse Oximeter] 63 63 60 Respiratory Rate 18 18 22 Blood Pressure [Ri ght Arm] 158/77 H 154/75 H Pulse Oximetry 98 Oxygen Delivery Me thod Room Air Room Air Labs Labs: Laboratory Results - last 24 hr 05/23/24 05/24/24 05/24/24 19:30 06:07 11:00 WBC 12.46 H RBC 3.50 L Hgb 11.0 L Hct 31.2 L MCV 89 MCH 31 MCHC 35 Plt Count 277 Sodium 124 L* 125 L 124 L* Potassium 4.3 Chloride 94 L Carbon Dioxide 26 Anion Gap 5 L BUN 14 Creatinine 0.8 Estimated Creat Clear 64.60 Estimated GFR 94 Glucose 104 Calcium 8.3 L C-Reactive Protein 16.1 H
[2024-05-24 16:26] LABS: Sodium* 125 mmol/L (135-149)
--- NOTE | 2024-05-24 18:59 | PC.NURSE ---
End of Shift: Patient pleasant and cooperative. Patient hypertensive, MD aware, lungs with course crackles, BS WNL, IV SL and intact. Patient denies pain and is independent in room. Patient tolerating regular diet, urinating well, and no BM this shift. Patient has been up in chair all shift. Patient has course cough that is productive at times. Tele=NSR.
[2024-05-24] MEDS: lisinopriL 10 MG TABLET PO (21:14)
[2024-05-24] MEDS: ENOXAPARIN 40 MG/0.4 ML INJ SUBCUT (21:15)
[2024-05-25] VITALS (9 sets, daily range): BP systolic 155–170; BP diastolic 73–86; PULSE 61–78; RESP 18–24; TEMP 36.7–36.9; O2SAT 95–98
--- NOTE | 2024-05-25 06:36 | PC.NURSE ---
Pt is alert and oriented x3. Afebrile. Pt denies pain, chest pain, and SOB. Pt continues to have continuous dry cough. Pt lung sounds have coarse crackles and inspiratory wheezing. Pt is up Ind in room, voiding and tolerating a 1500 fluid restriction. ?
[2024-05-25 06:58] LABS: Hematocrit 30.9 % (37.0-53.0); Hemoglobin* 10.9 gm/dL (13.5-17.5); Mean Corpuscular HGB Conc 35 gm/dL (32-36); Mean Corpuscular Hemoglobin 31 pg (26-34); Mean Corpuscular Volume 89 fL (80-100); Platelet Count* 301 K/uL (140-440); Red Blood Count 3.49 m/uL (4.30-5.90); White Blood Count* 12.13 K/uL (4.50-11.00)
[2024-05-25 07:09] LABS: Slide Review Reflex No
[2024-05-25 07:18] LABS: Chloride* 92 mmol/L (96-114); Potassium* 3.8 mmol/L (3.6-5.1)
[2024-05-25 07:21] LABS: Anion Gap 7 mEq/L (7-15); Blood Urea Nitrogen* 10 mg/dL (7-30); Carbon Dioxide* 23 mmol/L (20-32); Creatinine* 0.6 mg/dL (0.5-1.5); Estimated Glomerular Filt Rate 103 ml/min
[2024-05-25 07:22] LABS: Calcium* 8.2 mg/dL (8.4-10.6); Glucose* 109 mg/dL (60-115)
[2024-05-25 07:30] LABS: Sodium* 122 mmol/L (135-149)
[2024-05-25] MEDS: SODIUM CHLORIDE 1 GM TABLET PO ×3 (07:38→17:54)
[2024-05-25] MEDS: cefTRIAXone 1 GM in 0.9 % SODIUM CHLORIDE Mini-bag 100 ML IVPB (08:42)
[2024-05-25] MEDS: 3 % SODIUM CHLORIDE 500 ml 50 ML 33.33 ML IV (08:43)
[2024-05-25] MEDS: guaiFENesin 600 MG TAB.ER.12H 1200 MG PO ×2 (08:46→20:24)
[2024-05-25] MEDS: lisinopriL 10 MG TABLET PO (08:46)
[2024-05-25] MEDS: FAMOTIDINE 20 MG TABLET PO (08:47)
[2024-05-25] MEDS: BENZONATATE 100 MG CAPSULE 200 MG PO ×3 (08:47→20:24)
[2024-05-25] MEDS: SODIUM CHLORIDE 0.9 % (FLUSH) 10 ML SYRINGE 5 ML IVF ×2 (08:47→20:24)
[2024-05-25 13:00] LABS: Sodium* 122 mmol/L (135-149)
[2024-05-25] MEDS: POTASSIUM BICARB 25 MEQ EFFERVESCENT TAB PO (13:47)
[2024-05-25] MEDS: FUROSEMIDE 10 MG/ML inj 20 MG IVP (13:47)
[2024-05-25] MEDS: 3 % SODIUM CHLORIDE 500 ml 100 ML 33.33 ML IV (13:48)
--- NOTE | 2024-05-25 18:19 | P.IMPN_ITS ---
Progress Note: A&P Assessment and plan (1) Acute hyponatremia: Problem details: Serum and urine osmolality is still pending. Urine sodium of 104 suggests inappropriately high sodium excretion in the context of hyponatremia. SIADH? Add protein shakes. Fluid restriction, sodium chloride, furosemide x1 Status: Acute (2) Pneumonia: Problem details: -CXR shows faint airspace opacities in the right upper and mid lung zones and likely medial right lower lobe, concerning for multifocal pneumonia, likely due to RSV -leukocytosis, lactate 0.9, procalcitonin 0.39, CRP 21.4 -continue Ceftriaxone and azithromycin as initiated in ED -mucinex bid, tessalon perles prn, incentive spirometry, aerobika, albuterol nebs prn -consider CT imaging if new or worsening symptoms or no resolve Status: Acute (3) RSV (respiratory syncytial virus infection): Problem details: -positive test 05/21/24, sxs congestion, fever 100.3 at home, dry cough -symptomatic cares Status: Acute (4) Acute nausea with nonbilious vomiting: Problem details: Mostly resolved Status: Acute (5) Hypertension: Problem details: -holding lisinopril in setting of hyponatremia, monitor pressures Status: Acute Plan Continue in hospital for management of hyponatremia. Time Spent With Patient Total time spent: Total time spent today is 50 minutes in reviewing past records, discussing with patient evaluation and management of hyponatremia and ongoing plan of care. Subjective Date Seen: 05/25/24 Interval history: Drew Hernandez is a 74 year old male past medical history significant for hypertension, GERD is admitted the medical floor from the ED for further management acute hyponatremia, multifocal pneumonia, and RSV. Patient is seen with at bedside. Returned from a 2 week cruise to the [place] a couple of weeks ago. Reports coming down with chest congestion and what he thought was a head cold approximately 05/09/2024. Had been seen a couple of times in the outpatient setting and has completed a course of antibiotics and steroids without improvement. For the past 3 days now has had a worsening, dry cough. Began vomiting last night. Increased weakness. In the ED, was found to have a sodium of 118. Has not had much of an appetite for the past 3 days. Last bowel movement was yesterday, small otherwise normal. Denies diarrhea. Denies abdominal pain other than when coughing. Denies headache or dizziness. Had a fever of 100.3? yesterday. RSV positive 05/21/2024, COVID influenza negative. CXR concerning for multifocal pneumonia. No hypoxia. LFTs mostly unremarkable, lipase negative. Nonsmoker. Drinks 1 scotch and aida [place] drink nightly. PCP is, Dr. Virgen, [facility]. No history of hyponatremia. Patient has been eating poorly prior to and during this hospital stay. 05/25/2024: Patient's hyponatremia has been poorly responsive to interventions so far. He has received fluid restriction, sodium chloride in salt tablets as well as hypertonic saline. His sodium is increased to as high as 125 and is currently 122. His serum and urine osmolality is pending. Random urine sodium is 104. He reports otherwise he is generally feeling well. He is still having some cough but no dyspnea. His appetite is better. He thinks he is eating last because he is not able to get enough fluid to drink. We will add in protein shakes to assist with this. Exam Narrative: Exam Narrative: He is alert and appears in no distress. Speech is normal. Respirations are clear to auscultation except for an occasional basilar crackle. Cardiovascular: S1, S2, regular rate and rhythm. Abdomen is soft without tenderness or mass. No edema. Const: Vital Signs, click to edit/add: Vital Signs - 24 hr 05/24/24 20:10 05/24/24 23:20 05/24/24 23:20 Temperature 98.5 F Pulse Rate 81 Pulse Rate [Pulse Oximeter] 78 Respiratory Rate 18 18 Blood Pressure [Ri t Arm] 166/75 H Pulse Oximetry 97 Oxygen Delivery Wa thod Room Air 05/24/24 23:20 05/25/24 05:05 05/25/24 07:36 Temperature 99.0 F 98.3 F 98.1 F Pulse Rate Pulse Rate [Pulse Oximeter] 73 64 61 Respiratory Rate 20 20 18 Blood Pressure [Ri ght Arm] 164/84 H 158/78 H 155/77 H Pulse Oximetry 98 97 98 Oxygen Delivery Wa thod Room Air Room Air Room Air 05/25/24 07:36 05/25/24 09:49 05/25/24 11:00 Temperature 98.4 F Pulse Rate 71 Pulse Rate [Pulse Oximeter] 61 65 Respiratory Rate 18 24 Blood Pressure [Ri t Arm] 160/73 H Pulse Oximetry 97 Oxygen Delivery Me thod Room Air 05/25/24 15:39 05/25/24 16:03 05/25/24 16:03 Temperature 98.3 F Pulse Rate 78 Pulse Rate [Pulse Oximeter] 76 76 Respiratory Rate 24 24 Blood Pressure [Ri ght Arm] 170/79 H Pulse Oximetry 97 Oxygen Delivery Me thod Room Air Documenting provider has reviewed patient's vital signs: yes Labs Labs: Laboratory Results - last 24 hr 05/25/24 05/25/24 06:23 12:18 WBC 12.13 H RBC 3.49 L Hgb 10.9 L Hct 30.9 L MCV 89 MCH 31 MCHC 35 Plt Count 301 Sodium 122 L* 122 L* Potassium 3.8 Chloride 92 L Carbon Dioxide 23 Anion Gap 7 BUN 10 Creatinine 0.6 Estimated Creat Clear 64.60 Estimated GFR 103 Glucose 109 Calcium 8.2 L
--- NOTE | 2024-05-25 18:23 | PC.NURSE ---
End of Shift: Patient pleasant and cooperative. Patient vitally stable, lungs course, BS WNL, IV SL and intact. Patient denies pain and is independent in room. Patient walked the halls today. Patient tolerating regular diet, urinating well, and had 1 BM.
[2024-05-25 18:33] LABS: Sodium* 124 mmol/L (135-149)
[2024-05-25] MEDS: ENOXAPARIN 40 MG/0.4 ML INJ SUBCUT (20:24)
[2024-05-25 22:39] LABS: Urine Osmolality 737 mOsm/kg (50-800)
[2024-05-26] VITALS (8 sets, daily range): BP systolic 135–156; BP diastolic 69–83; PULSE 59–85; RESP 18–26; TEMP 36.7–36.9; O2SAT 93–98
--- NOTE | 2024-05-26 05:48 | PC.NURSE ---
Shift note: Pt continue to have intermittent cough. He has been doing well on RA with O2>90. SBA to independent in room. Systolic Bp has been elevated this shift. Pt had adequate sleep.
[2024-05-26 07:02] LABS: Hematocrit 30.6 % (37.0-53.0); Hemoglobin* 10.8 gm/dL (13.5-17.5); Mean Corpuscular HGB Conc 35 gm/dL (32-36); Mean Corpuscular Hemoglobin 31 pg (26-34); Mean Corpuscular Volume 89 fL (80-100); Platelet Count* 307 K/uL (140-440); Red Blood Count 3.44 m/uL (4.30-5.90)
[2024-05-26 07:04] LABS: Slide Review Reflex No
[2024-05-26 07:14] LABS: Chloride* 89 mmol/L (96-114); Potassium* 4.4 mmol/L (3.6-5.1)
[2024-05-26 07:17] LABS: Anion Gap 8 mEq/L (7-15); Calcium* 8.5 mg/dL (8.4-10.6); Carbon Dioxide* 25 mmol/L (20-32); Creatinine* 0.7 mg/dL (0.5-1.5); Est. Creatinine Clearance* 64.47; Estimated Glomerular Filt Rate 98 ml/min; Glucose* 108 mg/dL (60-115)
[2024-05-26] MEDS: SODIUM CHLORIDE 1 GM TABLET PO ×3 (07:41→18:20)
[2024-05-26 07:49] LABS: Sodium* 122 mmol/L (135-149)
[2024-05-26 07:54] LABS: Blood Urea Nitrogen* 15 mg/dL (7-30)
[2024-05-26 08:22] LABS: Thyroid Stimulating Hormone* 0.977 uIU/mL (0.270-4.20)
[2024-05-26] MEDS: guaiFENesin 600 MG TAB.ER.12H 1200 MG PO ×2 (08:50→20:35)
[2024-05-26] MEDS: BENZONATATE 100 MG CAPSULE 200 MG PO ×3 (08:50→20:35)
[2024-05-26] MEDS: SODIUM CHLORIDE 0.9 % (FLUSH) 10 ML SYRINGE 5 ML IVF (08:51)
[2024-05-26] MEDS: FAMOTIDINE 20 MG TABLET PO (08:51)
[2024-05-26] MEDS: 3 % SODIUM CHLORIDE 500 ml 100 ML 33.33 ML IV (08:56)
[2024-05-26] MEDS: POTASSIUM BICARB 25 MEQ EFFERVESCENT TAB PO ×2 (09:53→11:14)
[2024-05-26] MEDS: FUROSEMIDE 10 MG/ML inj 20 MG IVP ×2 (09:53→16:06)
[2024-05-26] MEDS: ALBUTEROL SULFATE 2.5 MG/3 ML VIAL.NEB NEB (11:14)
[2024-05-26 11:59] LABS: Sodium Urine Random* 131
[2024-05-26 12:37] LABS: Sodium* 125 mmol/L (135-149)
[2024-05-26] MEDS: 0.9 % SODIUM CHLORIDE 1000 ml 1,000 ML 125 ML IV (14:42)
--- NOTE | 2024-05-26 18:52 | PC.NURSE ---
End of Shift: Patient pleasant and cooperative. Patient vitally stable, lungs course, BS WNL IV running NS 125. Patient with dry cough, two nebs given today. Patient denies pain and independent in room. Patient showered today, and up in chair majority of day. Patient tolerating regular diet, urinating well, no BM. Patient tele=NSR.
[2024-05-26] MEDS: ENOXAPARIN 40 MG/0.4 ML INJ SUBCUT (20:35)
[2024-05-26 21:21] LABS: Sodium* 126 mmol/L (135-149)
--- NOTE | 2024-05-26 21:35 | P.IMPN_ITS ---
Progress Note: A&P Assessment and plan (1) Acute hyponatremia: Problem details: Serum and urine osmolality is still pending. Urine sodium of 104 suggests inappropriately high sodium excretion in the context of hyponatremia. SIADH? Per nephrology recommendations will tighten fluid restriction, added urea, continue sodium supplementation and furosemide Status: Acute (2) Pneumonia: Problem details: -CXR shows faint airspace opacities in the right upper and mid lung zones and likely medial right lower lobe, concerning for multifocal pneumonia, likely due to RSV -leukocytosis, lactate 0.9, procalcitonin 0.39, CRP 21.4 -continue Ceftriaxone and azithromycin as initiated in ED -mucinex bid, tessalon perles prn, incentive spirometry, aerobika, albuterol nebs prn -consider CT imaging if new or worsening symptoms or no resolve Status: Acute (3) RSV (respiratory syncytial virus infection): Problem details: -positive test 05/21/24, sxs congestion, fever 100.3 at home, dry cough -symptomatic cares Status: Acute (4) Acute nausea with nonbilious vomiting: Problem details: Resolved Status: Acute (5) Hypertension: Problem details: -holding lisinopril in setting of hyponatremia, monitor pressures Status: Acute Plan Continue in hospital for management of hyponatremia likely due to SIADH. Anticipate discharge to home when evidence of improvement and stability allowing outpatient management Time Spent With Patient Total time spent: Total time spent today is 50 minutes in coordination care discussing with patient, and [employer] ongoing diagnosis and management of hyponatremia Subjective Date Seen: 05/26/24 Interval history: Drew Hernandez is a 74 year old male past medical history significant for hypertension, GERD is admitted the medical floor from the ED for further management acute hyponatremia, multifocal pneumonia, and RSV. Patient is seen with at bedside. Returned from a 2 week cruise to the [place] a couple of weeks ago. Reports coming down with chest congestion and what he thought was a head cold approximately 05/09/2024. Had been seen a couple of times in the outpatient setting and has completed a course of antibiotics and steroids without improvement. For the past 3 days now has had a worsening, dry cough. Began vomiting last night. Increased weakness. In the ED, was found to have a sodium of 118. Has not had much of an appetite for the past 3 days. Last bowel movement was yesterday, small otherwise normal. Denies diarrhea. Denies abdominal pain other than when coughing. Denies headache or dizziness. Had a fever of 100.3? yesterday. RSV positive 05/21/2024, COVID influenza negative. CXR concerning for multifocal pneumonia. No hypoxia. LFTs mostly unremarkable, lipase negative. Nonsmoker. Drinks 1 scotch and aida [place]rent[place] drink nightly. PCP is, Dr. Virgen, Kaylin Saba. No history of hyponatremia. Patient has been eating poorly prior to and during this hospital stay. 05/25/2024: Patient's hyponatremia has been poorly responsive to interventions so far. He has received fluid restriction, sodium chloride in salt tablets as well as hypertonic saline. His sodium is increased to as high as 125 and is currently 122. His serum and urine osmolality is pending. Random urine sodium is 104. He reports otherwise he is generally feeling well. He is still having some cough but no dyspnea. His appetite is better. He thinks he is eating last because he is not able to get enough fluid to drink. We will add in protein shakes to assist with this. 05/26/2024: Patient continues reports feeling well. Sodium continues to be improving only with hypertonic saline and furosemide. Without active treatment he tends back to sodium in the low 120s. No significant symptoms. I spoke with Nephrology at [facility]. 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 Exam Narrative: Exam Narrative: He is alert and in no distress. Respirations are clear to auscultation. Cardiovascular: S1, S2, regular rate and rhythm. Abdomen is soft without tenderness. Const: Vital Signs, click to edit/add: Vital Signs - 24 hr 05/25/24 22:37 05/25/24 22:37 05/25/24 23:00 Temperature 98.3 F Pulse Rate 67 Pulse Rate [Pulse Oximeter] 66 66 Respiratory Rate 20 20 Blood Pressure [Le ft Arm] Blood Pressure [Ri ght Arm] 162/86 H Pulse Oximetry 95 Oxygen Delivery Me thod Room Air 05/26/24 03:00 05/26/24 07:37 05/26/24 07:37 Temperature 98.3 F 98.3 F Pulse Rate Pulse Rate [Pulse Oximeter] 62 59 L 59 L Respiratory Rate 20 22 22 Blood Pressure [Le ft Arm] Blood Pressure [Ri ght Arm] 144/78 H 156/77 H Pulse Oximetry 97 94 Oxygen Delivery Me thod Room Air Room Air 05/26/24 09:37 05/26/24 11:05 05/26/24 14:53 Temperature 98.1 F 98.4 F Pulse Rate 72 Pulse Rate [Pulse Oximeter] 72 76 Respiratory Rate 26 H 22 Blood Pressure [Le ft Arm] 135/69 Blood Pressure [Ri ght Arm] 156/82 H Pulse Oximetry 93 96 Oxygen Delivery Me thod Room Air Room Air 05/26/24 14:53 05/26/24 16:16 05/26/24 19:00 Temperature 98.5 F Pulse Rate 72 Pulse Rate [Pulse Oximeter] 76 85 Respiratory Rate 22 18 Blood Pressure [Le ft Arm] Blood Pressure [Ri ght Arm] 138/71 Pulse Oximetry 94 Oxygen Delivery Me thod Room Air Documenting provider has reviewed patient's vital signs: yes Labs Labs: Laboratory Results - last 24 hr 05/23/24 05/23/24 05/26/24 04:26 05:17 06:40 WBC 11.10 H RBC 3.44 L Hgb 10.8 L Hct 30.6 L MCV 89 MCH 31 MCHC 35 Plt Count 307 Sodium 122 L* Potassium 4.4 Chloride 89 L Carbon Dioxide 25 Anion Gap 8 BUN 15 Creatinine 0.7 Estimated Creat Clear 64.47 Estimated GFR 98 Glucose 108 Serum Osmolality 254 L Calcium 8.5 TSH 0.977 Ur Random Osmolality 737 Ur Random Sodium Lab Acknowledgement 05/26/24 05/26/24 05/26/24 07:36 07:36 11:05 WBC RBC Hgb Hct MCV MCH MCHC Plt Count Sodium Potassium Chloride Carbon Dioxide Anion Gap BUN Creatinine Estimated Creat Clear Estimated GFR Glucose Serum Osmolality Calcium TSH Ur Random Osmolality Ur Random Sodium 131 Lab Acknowledgement Test Added Test Added 05/26/24 05/26/24 12:15 21:00 WBC RBC Hgb Hct MCV MCH MCHC Plt Count Sodium 125 L 126 L Potassium Chloride Carbon Dioxide Anion Gap BUN Creatinine Estimated Creat Clear Estimated GFR Glucose Serum Osmolality Calcium TSH Ur Random Osmolality Ur Random Sodium Lab Acknowledgement
--- NOTE | 2024-05-26 23:21 | PC.NURSE ---
End of Shift [id number]: AxOx4, cooperative, and pleasant. Indep in room. Continent of bladder/bowel. Small BM this evening. Patient denies pain/SOB/CP. Tolerating diet and fluid restriction well. Uses call light appropriately. Pt appears resting in bed watching television with call light in reach.
[2024-05-27 03:00] VITALS: PULSE 52; RESP 18
[2024-05-27 04:06] VITALS: BP 146/75; PULSE 66; RESP 16; TEMP 36.6; O2SAT 94
--- NOTE | 2024-05-27 06:07 | PC.NURSE ---
Pt alert and oriented x3. Afebrile. Pt continues to have dry intermittent cough. Pt lung sounds have course crackles in posterior bases. Pt denies pain, SOB, and N/V. Pt is up ad shannon in room, voiding, and tolerating a 1200 fluid restriction. ?
[2024-05-27 06:41] LABS: Hematocrit 32.5 % (37.0-53.0); Hemoglobin* 11.3 gm/dL (13.5-17.5); Mean Corpuscular HGB Conc 35 gm/dL (32-36); Mean Corpuscular Hemoglobin 31 pg (26-34); Mean Corpuscular Volume 90 fL (80-100); Platelet Count* 332 K/uL (140-440); Red Blood Count 3.61 m/uL (4.30-5.90); White Blood Count* 11.05 K/uL (4.50-11.00)
[2024-05-27 06:42] LABS: Slide Review Reflex No
[2024-05-27 07:00] VITALS: PULSE 64
[2024-05-27 07:06] LABS: Chloride* 93 mmol/L (96-114); Potassium* 4.6 mmol/L (3.6-5.1); Sodium* 126 mmol/L (135-149)
[2024-05-27 07:09] LABS: Anion Gap 6 mEq/L (7-15); Blood Urea Nitrogen* 24 mg/dL (7-30); Carbon Dioxide* 27 mmol/L (20-32); Creatinine* 0.9 mg/dL (0.5-1.5); Est. Creatinine Clearance* 63.62; Estimated Glomerular Filt Rate 91 ml/min; Glucose* 111 mg/dL (60-115)
[2024-05-27 07:10] LABS: Calcium* 8.8 mg/dL (8.4-10.6)
[2024-05-27 08:11] VITALS: BP 146/71; PULSE 69; RESP 18; TEMP 36.6; O2SAT 96
[2024-05-27] MEDS: FAMOTIDINE 20 MG TABLET PO (08:44)
[2024-05-27] MEDS: SODIUM CHLORIDE 1 GM TABLET PO ×2 (08:44→11:48)
[2024-05-27] MEDS: guaiFENesin 600 MG TAB.ER.12H 1200 MG PO (08:44)
[2024-05-27] MEDS: ALBUTEROL SULFATE 2.5 MG/3 ML VIAL.NEB NEB (08:45)
[2024-05-27] MEDS: FUROSEMIDE 10 MG/ML inj 20 MG IVP (08:45)
[2024-05-27] MEDS: SODIUM CHLORIDE 0.9 % (FLUSH) 10 ML SYRINGE 5 ML IVF (08:46)
[2024-05-27 11:00] VITALS: BP 121/65; PULSE 77; RESP 18; TEMP 36.6; O2SAT 97
[2024-05-27] MEDS: BENZONATATE 100 MG CAPSULE 200 MG PO (11:47)
[2024-05-27 15:00] VITALS: PULSE 77; RESP 18
[2024-05-27 15:17] LABS: Sodium* 128 mmol/L (135-149)
--- NOTE | 2024-05-27 15:46 | P.DS_ITS ---
DS: Providers Provider Date Seen: 05/27/24 Date of admission: 05/22/24 14:54 Primary care physician: Not a Local Provider Admitting Clinician: Lynette Cosme MD Attending Physician on discharge: Lyndon Grove MD Date of Discharge: 05/27/24 DS: Diagnosis Discharge Diagnosis (1) Acute hyponatremia: Status: Acute Problem details: Serum and urine osmolality is still pending. Urine sodium of 104 suggests inappropriately high sodium excretion in the context of hyponatremia. Suspect SIADH Per nephrology recommendations will tighten fluid restriction, added urea, continue sodium supplementation and furosemide (2) Pneumonia: Status: Acute Problem details: On admission patient had chest x-ray showing multifocal infiltrates. Suspected to be RSV pneumonia. Treated for community-acquired pneumonia. Clinically improved relatively quickly. (3) RSV (respiratory syncytial virus infection): Status: Acute Problem details: -positive test 05/21/24, likely the cause of pneumonia. Clinically resolved except some persisting cough at the time of discharge (4) Acute nausea with nonbilious vomiting: Status: Acute Problem details: Resolved (5) Hypertension: Status: Acute Problem details: Lisinopril held on admission due to hyponatremia. Resumed at half dose on discharge DS: Summary Hospital Course Hospital Course: Drew Hernandez is a 74 year old male past medical history significant for hypertension, GERD is admitted the medical floor from the ED for further management acute hyponatremia, multifocal pneumonia, and RSV. Patient is seen with at bedside. Returned from a 2 week cruise to the [place] a couple of weeks ago. Reports coming down with chest congestion and what he thought was a head cold approximately 05/09/2024. Had been seen a couple of times in the outpatient setting and has completed a course of antibiotics and steroids without improvement. For the past 3 days now has had a worsening, dry cough. Began vomiting last night. Increased weakness. In the ED, was found to have a sodium of 118. Has not had much of an appetite for the past 3 days. Last bowel movement was yesterday, small otherwise normal. Denies diarrhea. Denies abdominal pain other than when coughing. Denies headache or dizziness. Had a fever of 100.3? yesterday. RSV positive 05/21/2024, COVID influenza negative. CXR concerning for multifocal pneumonia. No hypoxia. LFTs mostly unremarkable, lipase negative. Nonsmoker. Drinks 1 scotch and aida [place]rent[place] drink nightly. PCP is, Kaylin Sheffield. No history of hyponatremia. Patient has been eating poorly prior to and during this hospital stay. Patient was treated for community-acquired pneumonia and improved relatively quickly. Still having residual cough which may last for up to a few weeks. Otherwise feeling well. Patient had hyponatremia on admission with a sodium of 118. Treated with fluid restriction. Did not respond much to that. Was given hypertonic saline which did increase his sodium up to 125 but when it was stopped sodium dropped down to 122. This persisted for several days. Serum osmolality was 254. Urine osmolality 737 and urine sodium 104. This was consistent with SIADH presumably related to RSV pneumonia. Ongoing treatment with sodium chloride tablets, furosemide, urea and fluid restriction eventually got a sodium up to 128 on the day of discharge. Status at Discharge Functional status at discharge: independent ambulation Overall status at discharge: patient is back to baseline Time Spent with Patient Time attestation: Total time spent providing and/or coordinating discharge services: 45 minutes Time spent: Greater than 30 minutes Exam Narrative: Exam Narrative: He is alert and in no distress. Occasional cough is observed. No respiratory distress. Eating normally. Const: Vital Signs, click to edit/add: Vital Signs - 24 hr 05/26/24 16:16 05/26/24 19:00 05/26/24 23:03 Temperature 98.5 F 98.5 F Pulse Rate 72 Pulse Rate [Pulse Oximeter] 85 76 Respiratory Rate 18 18 Blood Pressure [Le ft Arm] Blood Pressure [Ri ght Arm] 138/71 141/83 H Pulse Oximetry 94 98 Oxygen Delivery Me thod Room Air Room Air 05/26/24 23:03 05/27/24 03:00 05/27/24 04:06 Temperature 97.8 F Pulse Rate Pulse Rate [Pulse Oximeter] 52 L 66 Respiratory Rate 18 18 16 Blood Pressure [Le ft Arm] Blood Pressure [Ri ght Arm] 146/75 H Pulse Oximetry 94 Oxygen Delivery Me thod Room Air 05/27/24 07:00 05/27/24 08:11 05/27/24 11:00 Temperature 98 F 97.8 F Pulse Rate 64 Pulse Rate [Pulse Oximeter] 69 77 Respiratory Rate 18 18 Blood Pressure [Le ft Arm] 146/71 H 121/65 Blood Pressure [Ri ght Arm] Pulse Oximetry 96 97 Oxygen Delivery Me thod Room Air Room Air Documenting provider has reviewed patient's vital signs: yes DS: Data Data Completed and Pending Labs on day of discharge: Labs from last 24 hours 05/27/24 05/27/24 05/26/24 14:45 06:18 21:00 WBC 11.05 H RBC 3.61 L Hgb 11.3 L Hct 32.5 L MCV 90 MCH 31 MCHC 35 Plt Count 332 Sodium 128 L 126 L 126 L Potassium 4.6 Chloride 93 L Carbon Dioxide 27 Anion Gap 6 L BUN 24 Creatinine 0.9 Estimated Creat Clear 63.62 Estimated GFR 91 Glucose 111 Calcium 8.8 Imaging Chest x-ray: Radiologist's impression: INDICATION: : Cough chest radiograph on May 21, 2024 COMPARISON: Chest radiograph from May 21, 2024 TECHNIQUE: One view(s) of the chest FINDINGS/IMPRESSION: The cardiomediastinal silhouette and pulmonary vasculature are unremarkable. Faint airspace opacities in the right upper and mid lung zones and likely medial right lower lobe, concerning for multifocal pneumonia. There is no pleural effusion or pneumothorax. No displaced fractures. Discharge Plan Discharge Disposition: Home, Self-Care Date of Admission: 05/22/24 14:54 Attending Provider on Discharge: True Grove Primary Care Provider: Provider,Not a Local Condition: Improved Anticipated Discharge Date/Time: 05/27/24 16:00 Discharge Medications: New furosemide 20 mg tablet See Rx Instructions .ROUTE .COMPLEX Qty: 60 2RF Rx Instructions: 20 mg orally twice daily in tobacco stripper and mid afternoon Ure-Na 15 gram Powder In Packet 15 g PO BID Qty: 16 0RF sodium chloride 1,000 mg Tablet,Soluble 1,000 mg PO TIDWM Qty: 45 0RF senna 8.6 mg capsule 8.6 mg PO BID PRN (Reason: constipation) Qty: 30 0RF Continued famotidine 20 mg tablet 20 mg PO DAILY Changed lisinopril 20 mg tablet 10 mg PO DAILY Qty: 30 0RF Discontinued albuterol sulfate 90 mcg/actuation HFA aerosol inhaler 2 puff inhalation Q6H PRN (Reason: shortness of breath or wheezing) Qty: 6.7 0RF amoxicillin-pot clavulanate [Augmentin XR] 1,000-62.5 mg tablet extended release 12 hr 1 tab PO BID 10 Days Qty: 20 0RF benzonatate 200 mg capsule 200 mg PO TID PRN (Reason: cough) Qty: 30 2RF Discharge Orders: Discharge Order (Routine); Ordered 05/27/24 Ordered By: True Grove Additional Instructions: Return to [facility] on MondayMay 29 for a lab tests: Basic metabolic panel. Call Dr. Grove at the [facility], in the next 4 days if you have questions or concerns. Activity Level: No Restrictions Discharge Diet: Regular Follow Up Appointments: Antonio Virgen MD [Referring] - (follow up in 4 days. Check basic metabolic panel in 4 days.) Provider,Not a Local [Primary Care Provider] - Forms: [employer] Display System Info Instructions
[2024-05-27] MEDS: UREA 15 GM POWD.PACK PO (16:47)
[2024-05-27] MEDS: FUROSEMIDE 20 MG TABLET PO (16:48)
[2024-05-28 18:07] LABS: Urine Osmolality 391 mOsm/kg (50-800)
[2024-05-28 22:42] LABS: Cortisol, Serum 12.3 ug/dL
== END 2024-05-27 16:00 | disposition home or self-care (01) | DRG 643 ==
LOC: ED 13:23 → MEDSURG 13:39
PROVIDERS: Family Medicine; Internal Medicine; Student in an Organized Health Care Education/Training Program; Admitting Provider Physician Assistant; Emergency Provider Family Medicine; Visit Provider Family Medicine
DX: E22.2 Syndrome of inappropriate secretion of antidiuretic hormone (principal); J12.1 Respiratory syncytial virus pneumonia; R11.2 Nausea with vomiting, unspecified; I10 Essential (primary) hypertension; K21.9 Gastro-esophageal reflux disease without esophagitis; R50.9 Fever, unspecified
CPT/HCPCS: 36415; 71045; 80048; 80053; 82533; 82803; 83605; 83690; 83735; 83930; 83935; 84145; 84295; 84300; 84443; 84484; 85025; 85027; 86140; 93005; 94640; 94664; 94761; 97161; 99284; 99285; A9270; J0456; J0696; J1650; J1940; J2405; J7030; J7050; J7131

== ENCOUNTER 2024-05-29 11:12 | Outpatient (CLI) | payer MEDICARE, SELFPAY ==
[2024-05-29 11:46] LABS: Chloride* 96 mmol/L (96-114); Potassium* 4.6 mmol/L (3.6-5.1); Sodium* 136 mmol/L (135-149)
[2024-05-29 11:49] LABS: Blood Urea Nitrogen* 35 mg/dL (7-30); Creatinine* 1.1 mg/dL (0.5-1.5); Estimated Glomerular Filt Rate 71 ml/min
[2024-05-29 11:50] LABS: Anion Gap 11 mEq/L (7-15); Calcium* 9.9 mg/dL (8.4-10.6); Carbon Dioxide* 29 mmol/L (20-32); Glucose* 113 mg/dL (60-115)
== END 2024-05-29 11:13 | disposition home or self-care (01) ==
LOC: LAB 11:13
PROVIDERS: PCP Family Medicine; Visit Provider Family Medicine
DX: E87.1 Hypo-osmolality and hyponatremia (principal); I10 Essential (primary) hypertension; Z79.899 Other long term (current) drug therapy
CPT/HCPCS: 36415; 80048